=== PATIENT | male | born 1980 | race Two or more races ===

== ENCOUNTER 2023-01-27 09:03 | Emergency (ER) | payer SELFPAY ==
[~2023-01-27] VITALS: Ht 182.9 cm; Wt 90.9 kg
[2023-01-27 09:47] LABS: Basophils # (auto) 0 10 ^3/uL (0-0.2); Basophils % (auto) 0.5 % (0.0-2.0); Eosinophils # (auto) 0.4 10 ^3/uL (0-0.8); Eosinophils % (auto) 6.8 % (0.0-7.0); Hematocrit 41.3 % (41.0-53.0); Hemoglobin 14.1 g/dL (13.5-17.5); Lymphocytes # (auto) 2.3 10 ^3/uL (0.4-5.4); Lymphocytes % (auto) 34.7 % (10.0-50.0); Mean Corpuscular Hemoglobin 29.7 pg (28.0-32.0); Mean Corpuscular Hgb Conc. 34.2 g/dL (32.0-36.0); Mean Corpuscular Volume 87.1 fL (80.0-100.0); Monocytes # (auto) 0.4 10 ^3/uL (0-1.3); Monocytes % (auto) 6.8 % (0.0-12.0); Neutrophils # (auto) 3.4 10 ^3/uL (1.6-8.6); Neutrophils % (auto) 51.2 % (37.0-80.0); Nucleated Red Blood Cells % 0.2 %; Red Blood Cells 4.74 10^6/uL (4.5-5.90); Red Cell Distribution Width 13.3 % (11.8-14.3); White Blood Cell 6.6 10^3/uL (4.4-10.8)
[2023-01-27] MEDS ORDERED: MECLIZINE HCL 25 MG TAB PO ONE (10:00)
[2023-01-27 10:20] LABS: Urine WBC None Seen /hpf (0 - 3)
[2023-01-27 10:23] LABS: INR 1.08 (0.9-1.15); Partial Thromboplastin Time 28.7 sec (24.6-33.4)
[2023-01-27 10:37] LABS: Albumin 3.9 g/dL (3.4-5.0); Calcium 8.3 mg/dL (8.5-10.1); Magnesium 2.5 mg/dL (1.6-2.6); Potassium 4.4 mmol/L (3.5-5.1)
[2023-01-27 10:40] LABS: BUN/Creatinine Ratio 14.9 (10.0-20.0); Bilirubin, Total 0.3 mg/dL (0.2-1.0); Total Protein 6.6 g/dL (6.4-8.2)
[2023-01-27 10:59] LABS: Urine Bacteria NONE SEEN /hpf (None Seen); Urine Blood Negative /uL (Negative); Urine Mucus FEW (None Seen)
[2023-01-27] MEDS ORDERED: MECL1TAB42 PO (14:47)
[2023-01-27 15:17] VITALS: BP 128/87
== END 2023-01-27 15:18 | disposition home or self-care (01) ==
LOC: ER 09:03
DX: R42 Dizziness and giddiness (principal); I10 Essential (primary) hypertension
CPT/HCPCS: 36415; 70450; 71045; 80053; 81001; 83735; 84484; 85025; 85610; 85730; 93005; 99285; J8597

== ENCOUNTER 2023-01-31 07:05 | Emergency (ER) | payer SELFPAY ==
[~2023-01-31] VITALS: Ht 182.9 cm; Wt 85.0 kg
[~2023-01-31 07:05] MED LIST: MECL1TAB42 PO
[2023-01-31] MEDS ORDERED: PROCHLORPERAZINE EDISYLATE 5 MG/ML 2ML VIAL IV ONE (07:45)
[2023-01-31 07:52] LABS: Basophils # (auto) 0 10 ^3/uL (0-0.2); Basophils % (auto) 0.3 % (0.0-2.0); Eosinophils # (auto) 0.3 10 ^3/uL (0-0.8); Eosinophils % (auto) 3.5 % (0.0-7.0); Hematocrit 41.1 % (41.0-53.0); Hemoglobin 14.3 g/dL (13.5-17.5); Lymphocytes # (auto) 1.1 10 ^3/uL (0.4-5.4); Lymphocytes % (auto) 13.5 % (10.0-50.0); Mean Corpuscular Hemoglobin 29.9 pg (28.0-32.0); Mean Corpuscular Hgb Conc. 34.7 g/dL (32.0-36.0); Mean Corpuscular Volume 86.1 fL (80.0-100.0); Monocytes # (auto) 0.2 10 ^3/uL (0-1.3); Monocytes % (auto) 2.4 % (0.0-12.0); Neutrophils # (auto) 6.4 10 ^3/uL (1.6-8.6); Neutrophils % (auto) 80.3 % (37.0-80.0); Nucleated Red Blood Cells % 0.2 %; Red Blood Cells 4.77 10^6/uL (4.5-5.90); Red Cell Distribution Width 13.3 % (11.8-14.3)
[2023-01-31 08:06] LABS: Albumin 4.1 g/dL (3.4-5.0); Calcium 8.8 mg/dL (8.5-10.1); Potassium 4.1 mmol/L (3.5-5.1)
[2023-01-31 08:10] LABS: BUN/Creatinine Ratio 20.9 (10.0-20.0); Bilirubin, Total 0.2 mg/dL (0.2-1.0); Total Protein 6.8 g/dL (6.4-8.2)
[2023-01-31 08:37] LABS: Urine Bacteria NONE SEEN /hpf (None Seen); Urine Blood Negative /uL (Negative); Urine Mucus FEW (None Seen); Urine Specific Gravity 1.021 (1.001-1.035); Urine WBC 3 /hpf (0 - 3)
[2023-01-31] MEDS ORDERED: PROCHLORPERAZINE EDISYLATE 5 MG/ML 2ML VIAL IM ONE (11:15)
[2023-01-31] MEDS ORDERED: IOHEXOL 350 MG/ML 100ML IJ ONE (13:09)
[2023-01-31] MEDS ORDERED: MECL1TAB42 PO (14:50)
[2023-01-31 15:30] VITALS: BP 152/92
== END 2023-01-31 15:34 | disposition home or self-care (01) ==
LOC: ER 07:05
DX: R42 Dizziness and giddiness (principal); G50.0 Trigeminal neuralgia
CPT/HCPCS: 36415; 70450; 70496; 71045; 80053; 81001; 84484; 85025; 93005; 93886; 96374; 99285; J0780; Q9967

== ENCOUNTER 2025-01-17 08:53 | Emergency (ER) | payer SELFPAY ==
[~2025-01-17] VITALS: Ht 182.9 cm; Wt 93.9 kg
[2025-01-17] MEDS: diphenhdrAMINE HCL 50 MG/1 ML VL IV ONE (09:38)
[2025-01-17] MEDS: FAMOTIDINE (10MG/ML) 2ML VL IV ONE (09:38)
[2025-01-17 09:44] VITALS: BP 132/97; PULSE 66; RESP 16; TEMP 98; O2SAT 97
[2025-01-17] MEDS: methylPREDNISolone SOD SUCC 125 MG/2 ML VL IV ONE (09:44)
[2025-01-17] MEDS: methylPREDNISolone SOD SUCC 40 MG/ML VL IV ONE (09:52)
[2025-01-17] MEDS ORDERED: EPIN0.3I24 IJ (10:44)
[2025-01-17] MEDS ORDERED: DIPH-424 PO (10:44)
[2025-01-17] MEDS ORDERED: METH4PAK PO (10:44)
--- NOTE | 2025-01-17 10:44 | ED.PDOC ---
HPI Allergic reaction HPI Comments 44-year-old presents for an allergic reaction located to the upper lower lip. The patient reports he had a similar incident one week ago and the patient was seen and Dr. Caro were he was prescribed a trial of cetirizine and prednisone 40 mg for five days. Medication helped temporarily the patient reports he woke up with sudden swelling at this morning which prompted the patient to the emergency department. Has not taken medications since yesterday. Denies any associated symptoms. Denies chest pain shortness of breath. Has no PCP at this time. Chief Complaint: Allergic Reaction Time Seen by MD: 09:02 Primary Care Provider: NONE Reviewed Notes: Nurses Notes, Medications, Allergies Allergies: Coded Allergies: NO KNOWN ALLERGIES (Unverified , 01/27/23) Home Meds Active Scripts Meclizine HCl (Meclizine 25) 25 Mg Tab, 25 MG PO Q6HP PRN, #30 TAB Prov:JOHAN FLORES MD 01/31/23 Meclizine HCl (Meclizine 25) 25 Mg Tab, 25 MG PO DAILYP PRN for 10 Days, #10 TAB Prov:HOA RUCKER MD 01/27/23 Information Source: Patient Mode of Arrival: Ambulatory Past Medical History PAST MEDICAL HISTORY: HTN, Denies Surgical History: Denies all surgeries Family History Family History: Reviewed,noncontributory to illness Social History Smoker: Non-Smoker Alcohol: Denies ETOH Use Drugs: Denies Drug Use Lives In: Home All Other Systems: Reviewed and Negative (Per HPI) Physical Exam General Appearance: No Apparent Distress, Normal HEENT: Normal ENT Inspection, Pharynx Normal, TMs Normal Neck: Full Range of Motion, Non-Tender, Normal, Normal Inspection Respiratory: Chest Non-Tender, Lungs Clear, No Accessory Muscle Use, No Respiratory Distress, Normal Breath Sounds Cardiovascular: No Edema, No JVD, No Murmur, No Gallop, Normal Peripheral Pulses, Regular Rate/Rhythm Breast Exam: Deferred Gastrointestinal: No Organomegaly, Non Tender, No Pulsatile Mass, Normal Bowel Sounds, Soft Genitalia: Deferred Pelvic: Deferred Rectal: Deferred Extremities: No calf tenderness, Normal capillary refill, Normal inspection, Normal range of motion, Non-tender, No pedal edema Musculoskeletal : Apperance: Normal Neurologic: Alert, quality control coordinator II-XII nml as Tested, No Motor Deficits, Normal Affect, Normal Mood, No Sensory Deficits Cerebellar Function: Normal Reflexes: Normal Skin: Dry, Normal Color, Warm Lymphatic: No Adenopathy Was a procedure done? Was a procedure done?: No Images 1 - Mild swelling to the upper and lower lip. Moist mucous membranes. Uvula midline. No airway obstruction. No tripod position. Differential diagnosis (all) Differential Diagnosis: Urticaria X-Ray, Labs, Meds, VS Vital Signs Date Time Temp Pulse Resp B/P (MAP) Pulse Ox O2 Delivery O2 Flow Rate FiO2 01/17/25 09:44 66 16 97 Room Air 01/17/25 09:44 98.0 66 16 132/97 (109) 98 98.0 01/17/25 09:08 18 97 Room Air* 0 21 01/17/25 09:04 97.7 67 18 146/101 (116) 97 97.7 Current Medications Medications (Trade) Dose Ordered Sig/Jordan Route Start Time Stop Time Status Last Admin Famotidine (Pepcid Injection) 20 mg ONCE ONCE IV 01/17/25 09:30 01/17/25 09:31 DC 01/17/25 09:38 Diphenhydramine HCl (Benadryl Injection) 25 mg ONCE ONCE IV 01/17/25 09:30 01/17/25 09:31 DC 01/17/25 09:38 Methylprednisolone Sodium Succinate (Solu Medrol) 120 mg ONCE ONCE IV 01/17/25 09:45 01/17/25 09:46 DC 01/17/25 09:52 X-Ray, Labs, Meds, VS Comment Patient presents with allergic reaction/urticaria. The patient has had NO clear precipitant for their rash including no medication or new detergent or topical exposure. History and physical exam consistent with allergic reaction. Patient protecting airway, no uvular or laryngeal edema present. No evidence of multiorgan involvement present. No respiratory distress. Low suspicion for toxic shock syndrome, anaphylaxis, asthma exacerbation, or drug toxicity. There is also no evidence of Martines Pierre syndrome or toxic epidermal necrolysis or urticarial vasculitis. Patient given benadryl IV, famotidine IV and Solumedrol IV. Patient observed in the ER for few hours with improvement of symptoms. Reassessment showed no respiratory distress, no airway compromise. Tolerated po. Vital signs remained stable. Informed patient second encounter with allergy could cause more severe and life- threatening symptoms such as shortness of breath and difficulty breathing. Medrol Dosepak prescribed additional treatment. Patient was instructed to take hydroxyzine and use calamine lotion as needed for itchiness. EpiPen prescribed. Education provided on possible side effects of medication. Patient needs fire extinguisher inspector referral for further testing. ED precautions discussed including angioedema, vomiting, abdominal pain or difficulty breathing Time of 1ST Reevaluation: 10:40 Reevaluation 1ST: Improved Patient Education/Counseling: Diagnosis, Treatment Family Education/Counseling: Diagnosis, Treatment Departure 1 Departure Time of Disposition: 10:42 Impression: Primary Impression: Allergic reaction Qualified Codes: T78.40XA - Allergy, unspecified, initial encounter Disposition: HOME / SELF CARE / HOMELESS Condition: Stable e-Prescriptions Epinephrine (Epinephrine) 0.3 Mg/0.3 Ml Inj 0.3 MG IJ UD for 1 Day, #1 INJ 0 Refills Prov: JULIO CESAR DAVE NP 01/17/25 Diphenhydramine Hcl (DIPHEN) 25 Mg Tab 25 MG PO Q6HPRN PRN for 10 Days, #40 TAB 0 Refills Prov: JULIO CESAR DAVE NP 01/17/25 Methylprednisolone (Medrol Dosepak) 4 Mg Jesu 4 MG PO UD for 7 Days, #21 TAB 0 Refills UAD Prov: JULIO CESAR DAVE NP 01/17/25 Discharged With: Self Critical Care Note Critical Care Time?: No Stability Stability form required: No Heart Score Heart Score: Heart Score Response (Comments) Value History N/A 0 EKG N/A 0 Age N/A 0 Risk Factors N/A 0 Troponin N/A 0 Total 0 JULIO CESAR DAVE NP January 17, 2025 10:44
== END 2025-01-17 10:49 | disposition home or self-care (01) ==
LOC: ER 08:53
DX: T78.40XA Allergy, unspecified, initial encounter (principal); I10 Essential (primary) hypertension; X58.XXXA Exposure to other specified factors, initial encounter
CPT/HCPCS: 96374; 96375; 99284; J1200; J2919; J3490